=== PATIENT | male | born 1980 | race Hispanic/Latino ===

== ENCOUNTER 2016-07-26 17:19 | Emergency (ER) | payer OTHER ==
[~2016-07-26] VITALS: Ht 167.6 cm; Wt 81.6 kg
[2016-07-26 19:26] VITALS: BP 138/87
--- NOTE | 2016-07-26 19:29 | ED ANIMAL BITE/WOUND CHECK ---
History of Present Illness General Chief Complaint: Laceration Procedure Stated Complaint: LAC TO LEFT MIDDLE FINGER Source: patient Exam Limitations: no limitations Vital Signs & Intake/Output Vital Signs & Intake/Output Vital Signs Date Time Temp Pulse Resp B/P Pulse O2 O2 Flow FiO2 Ox Delivery Rate 07/26 1926 98.5 58 18 138/87 99 07/26 1725 96.7 68 20 137/82 98 Room Air Room Air Allergies Coded Allergies: No Known Allergies (07/26/16) Reconcile Medications Cephalexin (Keflex) 500 MG CAPSULE 1 CAP PO BID laceration Triage Note: PT TO ED S/P LACERATION TO LEFT MIDDLE FINGER WITH DRILL BIT. LAST TETANUS SHOT: 1-2 YEARS AGO. Triage Nurses Notes Reviewed? yes HPI: Mr. Velez is a 36 yo m w/ a known past mental history presenting to emergency Department for evaluation of a wound to his left middle finger. Patient states he was drilling with a drill bit through some wood and did not recognize that his left middle finger was directly behind the hole. Patient drilled through the piece of wood and caught his finger on the opposite side. After noticing the pain, he withdrew. Patient states he had a laceration which he applied a bandage to. He is unable to get the bleeding to completely stop so he presented to the ED for further evaluation. Patient states his last tetanus shot was within the past 3 years. (GEGE RAMOS MD) Past History Travel History Traveled to [place] past 21 day No Medical History Any Pertinent Medical History? none Neurological: NONE EENT: NONE Cardiovascular: NONE Respiratory: NONE Gastrointestinal: NONE Hepatic: NONE Renal: NONE Musculoskeletal: NONE Psychiatric: NONE Endocrine: NONE Blood Disorders: NONE Cancer(s): NONE PROGRAM SUPPORT SPECIALIST/Reproductive: NONE Surgical History Surgical History: none Psychosocial History What is your primary language Turkmen Tobacco Use: Never used ETOH Use: denies use Illicit Drug Use: denies illicit drug use Family History Hx Contributory? No (GEGE RAMOS MD) Review of Systems Review of Systems Constitutional: Reports: see HPI. Comments Review of systems: See HPI, All other systems negative. Constitutional: no chills fever or weight loss HEENT: No visual changes, no sore throat, no congestion Cardiovascular: No chest pain, palpitation , orthopnea or ankle swelling Skin: Laceration to L middle fingerNo jaundice, no rashes. Respiratory: No dyspnea, cough ,sputum or hemoptysis GI: No nausea, no vomiting : No dysuria, No hematuria Musculoskeletal: no back pain, no neck pain Neurologic: No numbness no confusion Psych: No stress anxiety or depression Heme/endocrine: No bruising, no bleeding, no polyuria or polydipsia Immunology: No splenectomy or history of AIDS (GEGE RAMOS MD) Physical Exam Physical Exam General Appearance: well developed/nourished Comments: HEENT: Normal EENT exam, extraocular motion intact, no nystagmus. Pupils equally round and reactive to light and accommodation. Nose is atraumatic. External auditory canal and Tympanic membranes clear. Pharynx normal. No swelling or edema. Neck: Supple, no lymphadenopathy, normal range of motion without pain or tenderness Back: Nontender, no CVA tenderness. Full range of motion Cardiovascular: Regular rate and rhythms no murmurs rubs or gallops, normal JVP Respiratory: Chest nontender. No respiratory distress.breath sounds clear to auscultation bilaterally Abdomen: Soft, nontender nondistended, no appreciable organomegaly. Normal bowel sounds. No ascites Extremity: No edema, no calf tenderness to palpation, normal and equal pulses. Neuro: Alert oriented x3, motor sensory normal, cranial nerves II through XII grossly intact. Skin: Patient has 1.5 cm laceration to left third digit on the palmar surface. The laceration is jagged and irregular in shape. No obvious signs of foreign body. No surrounding erythema. Normal motor function at the PIP and DIP. Sensation is intact distal to the injury. No appreciable rash on exposed skin, skin is warm and dry. Psych: Mood and affect is normal, memory and judgment is normal. (GEGE RAMOS MD) Progress Differential Diagnosis: abscess, cellulitis, joint infection, tenosysnovitis, tendon injury, laceration, nerve injury, septic joint, open fracture Plan of Care: Orders Procedure Date/time Status XRY-FINGERS, LEFT 07/26 1912 Active Patient is otherwise well-appearing and normal 36-year-old male. No significant past medical history. Unintentional laceration while using tramadol. 1.5 cm irregularly shaped laceration to the palmar surface of the distal third finger on the left hand. No obvious deformity to the finger. Unlikely underlying fracture. Obtain basic x-ray to assess for possible foreign body as well as underlying fracture. X-ray shows small punctate radiopaque density along the very distal tip of the digit. I believe this is external to the patient's laceration. Patient was soaked in 500 mL of normal saline with Betadine. The patient was prepped by performing a digital block by injecting 5 mL of lidocaine 1% without epi on the palmar surface just proximal to the MCP of the hand. Patient was then irrigated with an additional 500 mL of normal saline. A repeat x-ray was obtained which did not show any change in the location of the distal tip radiopaque foreign body. I believe that this is external to the patient's body. Patient wasn't sutured. He tolerated the procedure well. We will discharge with PO Keflex given that the laceration is located at the distal most portion of the finger. Patient given return precautions. Patient advised to return to ED if there are signs of infection. Wound was wrapped in bacitracin and nonstick gauze and discharged home. (GEGE RAMOS MD) Diagnostic Imaging: Viewed by Me: Radiology Read. Discussed w/RAD: Radiology Read. Radiology Impression: Soft tissue injury along the palmar aspect of the left third finger. No acute fracture or dislocation of the digit is identified. There is a punctate radiopaque density along the tip of the digit which may be external to the patient or may represent a punctate embedded radiopaque foreign body., 1. Laceration at the radial side of the finger adjacent to the DIP joint containing no radiopaque foreign body. 2. Persistent punctate radiopaque foreign body at the distal tip of the middle digit. (GEGE RAMOS MD) Departure Departure Time of Disposition: 2132 Disposition: HOME OR SELF CARE Condition: Stable Clinical Impression Primary Impression: Finger laceration Qualifiers: Encounter type: initial encounter Qualified Code: S61.219A - Laceration without foreign body of unspecified finger without damage to nail, initial encounter Referrals: PATIENT HAS NO PRIMARY CARE DR (PCP/Family) Departure Forms: Customer Survey General Discharge Information Prescriptions: Current Visit Scripts Cephalexin (Keflex) 1 CAP PO BID #[id number] CAP (GEGE RAMOS MD) Resident Co-Sign Statement Statement: ED Attending supervision documentation- X I saw and evaluated the patient. I have also reviewed all the pertinent lab results and diagnostic results. I agree with the findings and the plan of care as documented in the Resident's documentation. [] I have reviewed the ED Record and agree with the Resident's documentation. [] Additions or exceptions (if any) to the Resident's note and plan are summarized below: [] (MALIK LEMUS,HIRO) Procedures Laceration/Wound Repair Laceration/Wound Repair: Wound Location: upper extremity Wound's Depth, Shape: irregular, superficial, subcutaneous Wound Length (cm): 1.5 Wound Explored: clean, irrigated extensively Irrigated w/ Saline (ccs): 1000 Betadine Prep? Yes Anesthesia: digit block, 1% lidocaine Volume Anesthetic (ccs): 5 Wound Debrided: minimal Wound Repaired With: sutures Suture Size/Type: 6:0, 5:0, nylon Number of Sutures: 3 Layer Closure? No Sterile Dressing Applied: Yes Splint Applied? No (RACHEL LEMUS,GEGE)
--- NOTE | 2016-07-26 19:43 | RADIOLOGY REPORT ---
EXAMINATION: XR FINGER, LEFT CLINICAL INFORMATION: Left finger injury. Evaluate for radiopaque foreign body. COMPARISON: None. TECHNIQUE: Single AP view of the left hand as well as oblique and lateral views of the injured finger. FINDINGS: No acute osseous or articular abnormality involving the left third finger. There is a punctate radiopaque density along the tip of the injured finger which is nonspecific and may be exterior to the patient or may represent a tiny punctate radiopaque foreign body. A soft tissue defect is identified along the palmar aspect of the digit. Alignment is anatomic. Joint spaces are maintained. IMPRESSION: Soft tissue injury along the palmar aspect of the left third finger. No acute fracture or dislocation of the digit is identified. There is a punctate radiopaque density along the tip of the digit which may be external to the patient or may represent a punctate embedded radiopaque foreign body.
--- NOTE | 2016-07-26 21:29 | RADIOLOGY REPORT ---
EXAMINATION: Left middle finger. CLINICAL INFORMATION: Assess for foreign body after irrigation COMPARISON: Left middle finger 07/26/2016, 7:18 PM TECHNIQUE: 2 views of left middle digit FINDINGS: Soft tissue laceration at the radial side of the middle digit adjacent to the DIP joint. Laceration is seen along the radial side of the finger adjacent to the DIP joint. No radiopaque foreign body seen in this area. There is a punctate radiopaque foreign body in the soft tissues of the distal tip of the middle digit about 0.3 cm distal to the distal tuft of the distal phalanx about 0.15 cm deep to the skin line at the nailbed. No fracture. No dislocation. IMPRESSION: 1. Laceration at the radial side of the finger adjacent to the DIP joint containing no radiopaque foreign body. 2. Persistent punctate radiopaque foreign body at the distal tip of the middle digit.
[2016-07-26] MEDS ORDERED: KEFLEX500 M1 PO (21:35)
== END 2016-07-26 22:00 ==
LOC: ERH 17:19
DX: S61.213A Laceration without foreign body of left middle finger without damage to nail, initial encounter (principal); W29.8XXA Contact with other powered hand tools and household machinery, initial encounter; Y92.9 Unspecified place or not applicable; Y93.9 Activity, unspecified
CPT/HCPCS: 73140-LT